=== PATIENT | female | born 1950 | race Caucasian/White ===

== ENCOUNTER → 2023-04-23 12:40 | Outpatient (REF) | payer MEDICARE, OTHER, SELFPAY | LOC: WDC 12:40 | PROVIDERS: ATTENDING PHYSICIAN Obstetrics & Gynecology; FAMILY PHYSICIAN Internal Medicine | DX: Z12.31 Encounter for screening mammogram for malignant neoplasm of breast (principal) | CPT/HCPCS: 77063; 77067 ==

== ENCOUNTER → 2023-05-21 10:58 | Outpatient (REF) | payer MEDICARE, OTHER, SELFPAY | LOC: DHCBC MAIN 10:58 | PROVIDERS: ATTENDING PHYSICIAN Internal Medicine; FAMILY PHYSICIAN Internal Medicine | DX: I77.810 Thoracic aortic ectasia (principal); I35.1 Nonrheumatic aortic (valve) insufficiency | CPT/HCPCS: 93306 ==

== ENCOUNTER → 2024-04-28 14:45 | Outpatient (REF) | payer MEDICARE, OTHER, SELFPAY | LOC: WDC 14:45 | PROVIDERS: ATTENDING PHYSICIAN Obstetrics & Gynecology; FAMILY PHYSICIAN Internal Medicine | DX: Z12.31 Encounter for screening mammogram for malignant neoplasm of breast (principal) | CPT/HCPCS: 77063; 77067 ==

== ENCOUNTER → 2024-07-20 13:52 | Outpatient (REF) | payer MEDICARE, OTHER, SELFPAY | LOC: RAD 13:52 | PROVIDERS: ATTENDING PHYSICIAN Internal Medicine Geriatric Medicine | DX: R31.9 Hematuria, unspecified (principal) | CPT/HCPCS: 76770 ==

== ENCOUNTER 2024-07-22 17:01 | Emergency (ER) | payer MEDICARE, OTHER, SELFPAY ==
[2024-07-22 17:05] VITALS: BP 153/98
[2024-07-22] MEDS: TORADOL 15 MG IM (17:18)
[2024-07-22] MEDS: ZOFRAN ODT (ORALLY DISINTEGRATING) 4 MG PO (17:19)
[2024-07-22 17:32] LABS: Urine Albumin 2+ (Neg - Trace); Urine Bilirubin Negative (Negative); Urine Character Clear (Clear); Urine Color Yellow; Urine Glucose Negative (Negative); Urine Ketone 1+ (Negative); Urine Leukocyte 3+ (Negative); Urine Nitrite Negative (Negative); Urine Occult Blood 4+ (Negative); Urine Specific Gravity 1.025 (<1.030); Urine Urobilinogen Negative (Neg - 1+)
[2024-07-22 17:33] LABS: % Basophils 0.5 % (0-2); % Immature Granulocytes 0.3 % (0-0.5); % Lymphocytes 27.5 % (20.5-51.1); % Monocytes 10.7 % (1.7-9.3); Absolute Eosinophils 0.1 10^3/uL (0-0.7); Absolute Lymphocytes 2.1 10^3/uL (1.2-3.4); Absolute Monocytes 0.8 10^3/uL (0.1-0.6); Absolute Neutrophils 4.6 10^3/uL (1.4-6.5); Hematocrit 42.2 % (37.0-47.0); Hemoglobin 14.2 g/dL (12.0-16.0); Mean Corp Hgb Conc. 33.6 g/dL (33.0-37.0); Mean Corpuscular Hgb 32.3 pg (27.0-31.0); Mean Corpuscular Volume 96.1 fL (81.0-99.0); Mean Platelet Volume 10.6 fL (7.4-10.4); Nucleated Red Blood Cells % 0 %; Platelet Count 181 10^3/uL (130-400); Red Blood Cell Count 4.39 10^6/uL (4.20-5.40); White Blood Cell Count 7.7 10^3/uL (4.8-10.8)
[2024-07-22 17:43] LABS: Urine Bacteria Many (Negative); Urine Red Blood Cell 50-60 /HPF (0-2); Urine White Cell 80-90 /HPF (0-5)
[2024-07-22 17:44] LABS: Urine Mucus Few
[2024-07-22 17:53] LABS: ALT (SGPT) 25 U/L (0-35); AST (SGOT) 25 U/L (14-36); Albumin 4.5 g/dl (3.5-5.0); Alkaline Phosphatase 88 U/L (38-126); Blood Urea Nitrogen 13 mg/dl (7-17); Calcium 9.8 mg/dl (8.4-10.2); Carbon Dioxide 23 mmol/L (22-30); Chloride 114 mmol/L (98-107); Glucose 129 mg/dl (70-99); Lipase 111 U/L (23-300); Sodium 146 mmol/L (135-145); Total Bilirubin 0.9 mg/dl (0.2-1.3); Total Protein 7.3 g/dl (6.3-8.2); eGFR > 60.00
--- NOTE | 2024-07-22 20:07 | ED.GENMED ---
History of Present Illness
General
Chief Complaint: Abdominal Symptoms
Source: patient and records
Exam Limitations: none
Time Seen by Provider: 07/22/24 19:52
History of Present Illness
History of Present Illness:
74yoF with a history of hypertension and DVT on Xarelto presenting for evaluation of flank pain. Patient has been experiencing hematuria for about a week. She was seen by her PCP was started on antibiotics for a UTI which she has completed. She
was sent for a renal ultrasound which she completed 2 days ago. Ultrasound showed a questionable small nonobstructing calculus in the left kidney. She was pain-free up until 3 PM when she reports an abrupt onset of pain in her left flank. Pain
was severe and made her nauseous. She received IM Toradol in triage and is now feeling much better. She saw what she believes was a kidney stone when she provided a urine sample on arrival. She denies any fevers or chills.
Past History
Past History
ED Past Medical History: HTN and Other (PE, DVT); Negative Hypercholesterolemia, IDDM or NIDDM
ED Past Surgical History: Orthopedic (Left leg surgery, right rotator cuff surgery, right knee surgery)
Social History
Tobacco: Former smoker
Alcohol: Daily (Wine 3 glasses)
Drug: None
Personal:
Living: with family
Employment: Employed
Family History
Family History: Hypertension
Phy Exam
General Physical Exam
General Presentation: well appearing and no apparent distress
General Skin: warm and dry
General Habitus: normal
General Mental: alert
ENT Exam
ENT Exam: normocephalic
Pulmonary Exam
Pulmonary Exam: no respiratory distress
Gastrointestinal Exam
Gastrointestinal Exam: non tender, soft, non distended and no cva tenderness
Neurological Exam
Neurological Exam: alert
[place] Coma Scale
Eye Opening: Spontaneous
Verbal Response: Oriented
Motor Response: Obeys Commands
GCS Total Score: 15
Skin Exam
Skin Exam: normal color and warm/dry
Psychiatric Exam
Psychiatric Exam: normal mood/affect
Course
Orders/Labs/Results
Orders:
Orders
07/22/24 17:15
Ketorolac [Toradol] 15 mg .ROUTE .STK-MED ONE
Ondansetron Orally Disint [Zofran Odt (Orally Disintegrating)] 4 mg .ROUTE .STK-MED ONE
07/22/24 17:17
Ketorolac [Toradol] 15 mg IM NOW STA
Ondansetron Orally Disint [Zofran Odt (Orally Disintegrating)] 4 mg PO NOW STA
07/22/24 17:25
Complete Blood Count/With Diff Urgent
Comprehensive Metabolic Panel Urgent
Lipase Urgent
Urinalysis Reflex To Culture Urgent
Date Specimen was Collected: 07/22/24
Time Specimen was Collected: 17:11
Urine Microscopic Reflex Cult Urgent
Urine Culture Urgent
MARY Source: U
Specimen Description:
Date Specimen was Collected: 07/22/24
Time Specimen was Collected: 17:11
07/22/24 20:06
CT Abd/pel Without Iv Or Oral Urgent
Comment:
Reason For Exam: L flank pain
0.9% Sodium Chloride 1000 ml [Nss] 1,000 ml IV BOLUS
07/22/24 21:56
Cefdinir [Omnicef] 300 mg PO NOW STA
Abnormal Lab Results
07/22/24
17:25
MCH 32.3 H pg
(27.0-31.0)
MPV 10.6 H fL
(7.4-10.4)
Absolute Monos (auto) 0.8 H 10^3/uL
(0.1-0.6)
Monocytes % 10.7 H %
(1.7-9.3)
Sodium 146 H mmol/L
(135-145)
Chloride 114 H mmol/L
(98-107)
Glucose 129 H mg/dl
(70-99)
Urine Ketones 1+ A
(Negative)
Ur Occult Blood Reflex 4+ A
(Negative)
Leukocyte Esterase Rfl 3+ A
(Negative)
Urine RBC 50-60 A /HPF
(0-2)
Urine WBC (Reflex) 80-90 A /HPF
(0-5)
Urine Bacteria (Reflex) Many A
(Negative)
Urine Albumin (Reflex) 2+ A
(Neg - Trace)
07/22/24 17:25
07/22/24 17:25
Vital Signs
Initial and Last Documented VS:
Initial Vital Signs
Temp Pulse Resp BP Pulse Ox
98.5 F 69 18 153/98 96
07/22/24 17:05 07/22/24 17:05 07/22/24 17:05 07/22/24 17:05 07/22/24 17:05
Last Documented Vital Signs
Temp Pulse Resp BP Pulse Ox
98.9 F 52 20 121/73 98
07/22/24 21:18 07/22/24 21:18 07/22/24 21:18 07/22/24 21:18 07/22/24 22:19
MDM/Problems Addressed
Differential Diagnosis Includes:
74yoF here with L flank pain. Began suddenly around 3pm this afternoon. Has been having hematuria x 1 week and just finished abx for UTI. Renal ultrasound 2 days ago showed possible L intrarenal stone. Pain resolved after receiving IM Toradol.
Believes she may have passed a stone in triage. She is hypertensive with otherwise stable vitals. Exam reassuring. Differential diagnosis includes but is not limited to: Kidney stone, pyelonephritis, musculoskeletal, less likely but consider AAA
Initial ED plan: Labs obtained in triage. White count and renal function normal. UA with 80-90 WBC and many bacteria. Will obtain CT abdomen without contrast. IV fluid bolus.
*Critical Care Note
Total Time (30-74mins, 75-104mins- exclusive of procedures): Not Applicable
Update Note
Update Note:
CT does not show any ureterolithiasis or hydronephrosis. No left intrarenal stone present. Suspect that patient passed a kidney stone spontaneously. Patient remains asymptomatic on reassessment. No indication for hospitalization. Will start on
a course of cefdinir for UTI. She has a urology appointment scheduled in 4 days. ED return precautions reviewed. Patient discharged in stable condition.
ED Attending Note
-
Portions of this chart may have been created with voice recognition software.� Occasional wrong word or��sound alike� substitutions may have occurred due to the inherent limitations of voice recognition software.
Discharge Plan
Departure
Patient Disposition: Home (Routine Discharge)
Date of Disposition: 07/22/24
Time of Disposition: 21:55
Patient with high blood pressure during this ER visit?: No
Discharge Problem:
Left flank pain, Urinary tract infection
Instructions: Urinary tract infections in adults
Prescriptions:
New
cefdinir 300 mg capsule
300 mg PO BID Qty: 13 0RF
No Action
biotin 1 MG tablet
1,000 mg PO DAILY
calcium carbonate-vitamin D3 1 EACH tablet
2 ea PO DAILY
Patient Comments:
600mg/400iu
atorvastatin 20 MG tablet
20 mg PO QPM
cyanocobalamin (vitamin B-12) 1,000 MCG tablet
1,000 mcg PO DAILY
zolpidem [Ambien CR] 12.5 MG tablet,ext release multiphase
12.5 mg PO HS
guaifenesin [Mucus Relief ER] 600 MG tablet extended release 12hr
600 mg PO Q12H PRN (Reason: allergies)
Milk Thistle
250 mg PO BID
fluticasone propionate [Flonase Allergy Relief] 50 mcg/actuation [place],Suspension
1 spray INTRANASAL DAILY
Xarelto 10 mg Tablet
10 mg PO QPM Qty: 2 0RF
Rx Instructions:
TAKE 8/12PM, 09/29 PM-THEN 20MG NIGHTLY FOR ONE MONTH
lisinopril 20 mg Tablet
20 mg PO DAILY
diltiazem HCl
10 mg PO DAILY
docusate sodium 100 mg capsule
100 mg PO BID PRN (Reason: michelle softner)
Referrals:
Yong Payton MD [Family Provider, Internal Medicine]
Activity Restrictions/Additional Instructions:
Take antibiotics as prescribed. Drink plenty of fluids and stay hydrated.
Please follow-up with urology on Friday as previously scheduled. Return to the ER with any new or worsening symptoms including severe pain, fevers, chills
Interventions
Interventions:
*Risk Screen - Suicide Last Done: 07/22/24 17:05
*General Assessment Last Done: 07/22/24 17:05
*Neglect/Abuse Screening Last Done: 07/22/24 17:05
*ED- Fall Risk Assessment Last Done: 07/22/24 21:18
*ED COVID-19 Vaccine History Last Done: 07/22/24 17:05
*Nursing Disposition Last Done: 07/22/24 22:19
YO-Mwulzr-Iqilyscptp Assessment Last Done: 07/22/24 21:18
Discharge Date and Time
Discharge Date/Time: 07/22/24 22:20
Print Language: ITALIAN
[2024-07-22 21:18] VITALS: BP 121/73
[2024-07-22] MEDS: OMNICEF 300 MG PO (22:12)
== END 2024-07-22 22:20 | disposition home or self-care (01) ==
LOC: EMR 17:01
PROVIDERS: Emergency Medicine; EMERGENCY PHYSICIAN Emergency Medicine; FAMILY PHYSICIAN Internal Medicine Geriatric Medicine
DX: R10.9 Unspecified abdominal pain (principal); N39.0 Urinary tract infection, site not specified; I10 Essential (primary) hypertension; Z82.49 Family history of ischemic heart disease and other diseases of the circulatory system; Z86.718 Personal history of other venous thrombosis and embolism; Z87.891 Personal history of nicotine dependence
CPT/HCPCS: 99284; 96372; 74176; 80053; 81003; 81015; 83690; 85025; 87086

== ENCOUNTER 2024-08-01 09:08 | Emergency (ER) | payer MEDICARE, OTHER, SELFPAY ==
[2024-08-01 09:10] VITALS: BP 163/82
[2024-08-01 09:31] LABS: % Basophils 0.8 % (0-2); % Eosinophils 1.7 % (0-6); % Lymphocytes 31.3 % (20.5-51.1); % Monocytes 9.2 % (1.7-9.3); Absolute Eosinophils 0.1 10^3/uL (0-0.7); Absolute Lymphocytes 1.6 10^3/uL (1.2-3.4); Absolute Monocytes 0.5 10^3/uL (0.1-0.6); Hematocrit 42.7 % (37.0-47.0); Hemoglobin 14.5 g/dL (12.0-16.0); Mean Corpuscular Hgb 32.2 pg (27.0-31.0); Mean Corpuscular Volume 94.9 fL (81.0-99.0); Mean Platelet Volume 10.5 fL (7.4-10.4); Nucleated Red Blood Cells % 0 %; Platelet Count 180 10^3/uL (130-400); Red Cell Dist. Width 12.1 % (11.5-14.5); White Blood Cell Count 5.2 10^3/uL (4.8-10.8)
[2024-08-01 09:32] LABS: Urine Albumin 1+ (Neg - Trace); Urine Bilirubin Negative (Negative); Urine Character Clear (Clear); Urine Color Yellow; Urine Glucose Negative (Negative); Urine Ketone Negative (Negative); Urine Leukocyte Negative (Negative); Urine Nitrite Negative (Negative); Urine Occult Blood 4+ (Negative); Urine Urobilinogen Negative (Neg - 1+)
[2024-08-01 09:40] LABS: Urine Urothelial Cell 0-2 /LPF (FEW)
[2024-08-01 09:41] LABS: Urine Bacteria Few (Negative); Urine Red Blood Cell 0-2 /HPF (0-2)
[2024-08-01 09:52] LABS: ALT (SGPT) 22 U/L (0-35); AST (SGOT) 23 U/L (14-36); Albumin 4.1 g/dl (3.5-5.0); Alkaline Phosphatase 88 U/L (38-126); Blood Urea Nitrogen 17 mg/dl (7-17); Carbon Dioxide 23 mmol/L (22-30); Chloride 113 mmol/L (98-107); Glucose 135 mg/dl (70-99); Lipase 155 U/L (23-300); Potassium 4.6 mmol/L (3.5-5.1); Sodium 143 mmol/L (135-145); Total Bilirubin 1.3 mg/dl (0.2-1.3); eGFR > 60.00
[2024-08-01 11:22] VITALS: BMI 27.2
[2024-08-01] MEDS: TORADOL 15 MG IV ×2 (11:32→13:12)
[2024-08-01 12:00] VITALS: BP 113/59
--- NOTE | 2024-08-01 12:55 | ED.GENMED ---
History of Present Illness
General
Chief Complaint: Urinary Symptoms
Source: patient and spouse
Exam Limitations: none
Time Seen by Provider: 08/01/24 10:37
Nursing documentation reviewed up to this point in time: agreed with
History of Present Illness
History of Present Illness:
Note:
CHIEF COMPLAINT(S)
Left-sided abdominal pain and hematuria.
HISTORY OF PRESENT ILLNESS
The patient is a 74-year-old female who presents with left-sided abdominal pain and a history of hematuria lasting for nearly three weeks. The patient was previously diagnosed with a urinary tract infection and a subsequent ultrasound revealed the
presence of a stone. Two weeks ago, the patient experienced significant pain prompting an emergency visit. She reports that pain began again this morning and is accompanied by urinary urgency with scant urine output. The pain is described as
primarily cramping initially, similar to menstrual cramps, before evolving into widespread pain and bloating. It is predominantly on the left side but also affects the lower back bilaterally. The patients last urology appointment was on the previous
Friday where a CT scan with contrast was ordered due to a previously non-contrast CT. She has not had a cystoscopy but is aware it may be necessary based on the CT results. Currently, she has mild left-sided abdominal tenderness without rebound or
guarding, is afebrile, and has an oxygen saturation of 98% on room air.
CHRONIC MEDICAL CONDITIONS SIGNIFICANTLY AFFECTING CARE
The patient has a history of pulmonary embolisms in 2019 for which she is on a reduced dose of rivaroxaban. She also has hypertension, managed with Lisinopril, and hyperlipidemia, managed with Atorvastatin.
MEDICATIONS
- Rivaroxaban, half a pill (patient resumed on her own after consultation with urology)
- Lisinopril 20 mg, daily
- Diltiazem (details unclear from the transcript)
- Atorvastatin 20 mg
- Zolpidem
- Fluticasone nasal spray
- Mucinex
- Gas-X
REVIEW OF SYSTEMS
- Gastrointestinal: Cramping abdominal pain, bloating
- Urinary: Hematuria, urgency with low urine output
- General: No recent fever, nausea and dry heaves present
PHYSICAL EXAM
- General: Patient appears in mild discomfort
- Cardiovascular: Normal heart sounds, no murmurs
- Respiratory: Lungs clear, no respiratory distress
- Gastrointestinal: Mild left-sided abdominal tenderness, soft, normal bowel sounds, no rebound or guarding
- Vascular: Equal pulses in all extremities
- Nursing notes reviewed and vital signs reviewed. Blood pressure 163/82.
PLAN
1. Perform a bladder scan to assess urine retention.
2. Conduct a CT scan with IV contrast as previously ordered by the urologist.
3. If significant urine retention is identified, consider catheterization.
4. Administer pain relief and anti-nausea medication as previously helpful.
DIFFERENTIAL DIAGNOSIS
The Differential Diagnosis includes, in no particular order and is not limited to:
1. Nephrolithiasis (Kidney Stone)
2. Urinary Tract Infection
3. Ureteral Obstruction
4. Bladder Tumor
5. Renal Colic
6. Interstitial Cystitis
7. Urosepsis
8. Pyelonephritis
9. Gynecological causes (e.g., ovarian cysts)
10. Hemorrhagic cystitis
CARE-UPDATE
08/01/24 - 12:52
Mild left renal collecting system or left ureteral dilation noted, with radiopaque calculus in the left ureter, possibly due to small lucent calculus or recently passed calculus at the left UVJ. Pain is controlled, and no signs of UTI are present.
Plan to discharge the patient with a recommendation to follow up with urology for further evaluation and management.
Disposition:
DIAGNOSIS
- Left flank pain (ICD-10: R10.30)
- Left Hydroureteronephrosis (ICD-10: N13.39)
- Hematuria (ICD-10: R31.9)
SUMMARY OF ENCOUNTER
The patient, a 74-year-old female, presented with left-sided abdominal pain and hematuria, persistent for nearly three weeks. She initially had a urinary tract infection and subsequent ultrasound detection of a stone. The patient faced significant
pain leading to an emergency visit two weeks ago. Today, cramping pain returned, spreading to the lower back, with urinary urgency and scant output. After an evaluation, mild left renal collecting system or left ureteral dilation was noted with
radiopaque calculus in the left ureter, possibly from a small lucent or recently passed stone at the left UVJ. Pain is currently under control.
DISPOSITION
Discharge.
ASSESSMENT
The patients symptoms of left-sided abdominal pain, hematuria, and findings of ureteral dilation with calculus indicate left ureteronephrosis potentially due to passing or retained stone causing hydroureteronephrosis.
PLAN
1. Discharge the patient with recommendations to follow up with urology for further evaluation and management.
2. Perform a CT scan with IV contrast as ordered by the urologist on follow-up.
3. If necessary, plan for a cystoscopy based on CT results.
INDEPENDENT INTERPRETATION OF TESTS
- My independent interpretation of the CT scan indicates mild left renal collecting system or left ureteral dilation with radiopaque calculus in the left ureter, possibly due to small lucent calculus or recently passed calculus at the left UVJ.
MEDICATION RECONCILIATION
- Pain relief and anti-nausea medications were administered as previously helpful.
MEDICAL DECISION MAKING
Number and Complexity of Problems Addressed:
The patient presented with complex issues involving potential nephrolithiasis, urinary obstruction, and hematuria requiring careful differential diagnosis.
Data:
Appropriate imaging and tests such as CT scan were implemented, revealing essential findings that informed the decision for discharge and follow-up care.
Risk:
Consideration for potential hospitalization was given due to the presence of obstructive uropathy. Medication reconciliation involved anticoagulation therapy management, and radiation exposure from a planned CT scan with IV contrast was also
considered due to its impact on clinical decision-making.
Past History
Past History
ED Past Medical History: HTN and Other (PE, DVT); Negative Hypercholesterolemia, IDDM or NIDDM
ED Past Surgical History: Orthopedic (Left leg surgery, right rotator cuff surgery, right knee surgery)
Social History
Tobacco: Former smoker
Alcohol: Daily (Wine 3 glasses)
Drug: None
Personal:
Living: with family
Employment: Employed
Family History
Family History: Hypertension
Phy Exam
Physical Exam
Physical Exam:
.
Course
Orders/Labs/Results
Orders:
Orders
08/01/24 09:15
Straight cath- Treatment ONCE
08/01/24 09:22
Complete Blood Count/With Diff Urgent
Comprehensive Metabolic Panel Urgent
Lipase Urgent
Urinalysis Reflex To Culture Urgent
Date Specimen was Collected: 08/01/24
Time Specimen was Collected: 09:15
Urine Microscopic Reflex Cult Urgent
08/01/24 11:07
CT Abd/pelvis W Iv Cont Urgent
Comment:
Reason For Exam: hematuria, b/l flank pain
08/01/24 11:24
Ketorolac [Toradol] 15 mg IV NOW STA
08/01/24 13:00
Ketorolac [Toradol] 15 mg IV NOW STA
08/01/24 13:02
Ketorolac [Toradol] 15 mg .ROUTE .STK-MED ONE
Abnormal Lab Results
08/01/24
09:22
MCH 32.2 H pg
(27.0-31.0)
MPV 10.5 H fL
(7.4-10.4)
Chloride 113 H mmol/L
(98-107)
Glucose 135 H mg/dl
(70-99)
Ur Occult Blood Reflex 4+ A
(Negative)
Urine Bacteria (Reflex) Few A
(Negative)
Urine Albumin (Reflex) 1+ A
(Neg - Trace)
08/01/24 09:22
08/01/24 09:22
Vital Signs
Initial and Last Documented VS:
Initial Vital Signs
Temp Pulse Resp BP Pulse Ox
97.9 F 74 18 163/82 98
08/01/24 09:10 08/01/24 09:10 08/01/24 09:10 08/01/24 09:10 08/01/24 09:10
Last Documented Vital Signs
Temp Pulse Resp BP Pulse Ox
97.9 F 61 18 113/59 99
08/01/24 09:10 08/01/24 12:00 08/01/24 12:00 08/01/24 12:00 08/01/24 12:00
*Pulse Oximetry
Patient hypoxic: no (98)
*Critical Care Note
Total Time (30-74mins, 75-104mins- exclusive of procedures): Not Applicable
ED Attending Note
-
Portions of this chart may have been created with voice recognition software.� Occasional wrong word or��sound alike� substitutions may have occurred due to the inherent limitations of voice recognition software.
Discharge Plan
Departure
Patient Disposition: Home (Routine Discharge)
Date of Disposition: 08/01/24
Time of Disposition: 12:56
Patient with high blood pressure during this ER visit?: Yes
Condition: Good
Discharge Problem:
Acute left flank pain, Hydroureteronephrosis, Hematuria
Instructions: Blood in the Urine (Hematuria), Adult (DC)
Prescriptions:
No Action
biotin 1 MG tablet
1,000 mg PO DAILY
calcium carbonate-vitamin D3 1 EACH tablet
2 ea PO DAILY
Patient Comments:
600mg/400iu
atorvastatin 20 MG tablet
20 mg PO QPM
cyanocobalamin (vitamin B-12) 1,000 MCG tablet
1,000 mcg PO DAILY
zolpidem [Ambien CR] 12.5 MG tablet,ext release multiphase
12.5 mg PO HS
guaifenesin [Mucus Relief ER] 600 MG tablet extended release 12hr
600 mg PO Q12H PRN (Reason: allergies)
Milk Thistle
250 mg PO BID
fluticasone propionate [Flonase Allergy Relief] 50 mcg/actuation [place],Suspension
1 spray INTRANASAL DAILY
Xarelto 10 mg Tablet
10 mg PO QPM Qty: 2 0RF
Rx Instructions:
TAKE 8/12PM, 13 PM-THEN 20MG NIGHTLY FOR ONE MONTH
lisinopril 20 mg Tablet
20 mg PO DAILY
diltiazem HCl
10 mg PO DAILY
cefdinir 300 mg capsule
300 mg PO BID Qty: 13 0RF
docusate sodium 100 mg capsule
100 mg PO BID PRN (Reason: michelle softner)
Referrals:
Amadeo Guallpa MD [Active, Urology] - Call in 1-3 days for appt
Samson Brown DO [Family Provider, Internal Medicine]
Interventions
Interventions:
*Risk Screen - Suicide Last Done: 08/01/24 09:10
*General Assessment Last Done: 08/01/24 09:10
*Neglect/Abuse Screening Last Done: 08/01/24 09:10
*ED- Fall Risk Assessment Last Done: 08/01/24 13:34
*ED COVID-19 Vaccine History Last Done: 08/01/24 13:34
*Nursing Disposition Last Done: 08/01/24 13:36
ED-Female Genitourinary Assessment Last Done: 08/01/24 13:34
Discharge Date and Time
Discharge Date/Time: 08/01/24 13:36
Print Language: ICELANDIC
== END 2024-08-01 13:36 | disposition home or self-care (01) ==
LOC: EMR 09:08
PROVIDERS: EMERGENCY PHYSICIAN Emergency Medicine; FAMILY PHYSICIAN Internal Medicine
DX: N13.30 Unspecified hydronephrosis (principal); R31.9 Hematuria, unspecified; R10.9 Unspecified abdominal pain; E78.5 Hyperlipidemia, unspecified; I10 Essential (primary) hypertension; Z87.891 Personal history of nicotine dependence
CPT/HCPCS: 99284; 96374; 96376; 74177; 80053; 81003; 81015; 83690; 85025; Q9967

== ENCOUNTER → 2024-10-06 09:19 | Outpatient (REF) | payer MEDICARE, OTHER, SELFPAY | LOC: RCS 09:19 | PROVIDERS: ATTENDING PHYSICIAN Nurse Practitioner; FAMILY PHYSICIAN Internal Medicine | DX: I77.810 Thoracic aortic ectasia (principal) | CPT/HCPCS: 93306 ==

== ENCOUNTER → 2024-11-08 07:47 | Outpatient (REF) | payer MEDICARE, OTHER, SELFPAY | LOC: RAD 07:47 | PROVIDERS: ATTENDING PHYSICIAN Internal Medicine | DX: I87.2 Venous insufficiency (chronic) (peripheral) (principal) | CPT/HCPCS: 93970 ==

== ENCOUNTER 2024-12-20 06:20 | Day surgery (SDC) | payer MEDICARE, OTHER, SELFPAY | END 2024-12-20 13:03 | disposition home or self-care (01) | LOC: GI 06:20 | PROVIDERS: ATTENDING PHYSICIAN Internal Medicine Gastroenterology | DX: Z12.11 Encounter for screening for malignant neoplasm of colon (principal); K64.8 Other hemorrhoids; K57.30 Diverticulosis of large intestine without perforation or abscess without bleeding; D12.0 Benign neoplasm of cecum; D12.5 Benign neoplasm of sigmoid colon; K62.1 Rectal polyp; Z80.0 Family history of malignant neoplasm of digestive organs; Z86.0100 Personal history of colon polyps, unspecified | CPT/HCPCS: 45380; 88305 ==